=== PATIENT | male | born 1975 | race African-American/Black ===

== ENCOUNTER 2017-11-12 18:41 | Emergency (ER) | payer OTHER ==
[~2017-11-12] VITALS: Ht 185.4 cm; Wt 96.7 kg
[~2017-11-12 18:41] MED LIST: CHERATUSSIN AC473 ML PO; PREDNISONE10 M1 PO
[2017-11-12] MEDS ORDERED: ZITHROMAX250 MG PO (21:36)
[2017-11-12] MEDS ORDERED: DELTASONE20 M1 PO (21:36)
[2017-11-12] MEDS ORDERED: ROBITUSSIN AC,T10 ML PO (21:36)
[2017-11-12 21:46] VITALS: BP 152/96
== END 2017-11-12 21:47 | disposition home or self-care (01) ==
LOC: EME 18:41
DX: J40 Bronchitis, not specified as acute or chronic (principal); F17.200 Nicotine dependence, unspecified, uncomplicated
CPT/HCPCS: 71046; 99281; 99284; J7512